=== PATIENT | male | born 1990 | race Caucasian/White ===

== ENCOUNTER 2024-08-26 11:22 | Oncology outpatient (recurring) (ONCR) | payer OTHER, SELFPAY ==
[2024-08-17 14:12] LABS: Basophils % 0.4 %; Eosinophils # 0.1 10^3/uL (0.0-0.8); Eosinophils % 1.6 %; Hematocrit 41.4 % (37-53); Lymphocytes # 3.1 10^3/uL (0.8-4.8); Lymphocytes % 38.4 %; Mean Corpuscular HGB Conc 34.8 g/dL (30-55); Mean Corpuscular Hemoglobin 33.3 pg (27-33); Mean Corpuscular Volume 95.6 fl (82-101); Mean Platelet Volume 9.5 fL (7.4-10.4); Monocytes # 0.5 10^3/uL (0.2-0.9); Monocytes % 5.8 %; Neutrophils # 4.35 10^3/uL (1.8-7.7); Neutrophils % 53.7 %; Nucleated Red Blood Cells % 0 %; Platelet Count 176 10^3/cmm (157-399); Red Blood Count 4.33 10^6/uL (3.85-5.65); Red Cell Distribution Width 13.9 % (12.1-15.1)
[2024-08-17 14:32] LABS: Alanine Aminotransferase 57 U/L (0-41); Albumin Level 4.2 g/dL (3.5-5.2); Alkaline Phosphatase 85 U/L (40-130); Anion Gap 14.7 (5-19); Aspartate Amino Transferase 39 U/L (0-40); Blood Urea Nitrogen 15 mg/dL (6-20); Calcium 9.2 mg/dL (8.5-10.5); Carbon Dioxide 27 mmol/L (22-29); Chloride 100 mmol/L (98-107); Glomerular Filtration Rate 84.5 mL/min (90-130); Glucose 116 mg/dL (65-115); Magnesium 2.3 mg/dL (1.7-2.3); Osmolality Calculated 288 mOsm/kg (285-295); Phosphorus 4.1 mg/dL (2.5-4.5); Potassium 3.7 mmol/L (3.5-5.1); Sodium 138 mmol/L (136-145); Total Bilirubin 0.4 mg/dL (0.15-1.2); Total Protein 7.2 g/dL (6.6-8.7); Uric Acid 4.9 mg/dL (3.4-7.0)
[2024-08-17 14:39] LABS: Lactate Dehydrogenase 192 U/L (135-225)
[2024-08-22 14:09] LABS: BCR ABL1 (IS) 7.147 (0.000); P210 BCR ALB1 DETECTED; P210 BCR ALB1 Yes Test Yes; Prior Results NG; Source blood
== END 2024-09-14 23:59 | disposition home or self-care (01) ==
PROVIDERS: Visit Provider Internal Medicine
DX: Z53.9 Procedure and treatment not carried out, unspecified reason (principal)
CPT/HCPCS: 36415; 80053; 81206; 83615; 83735; 84100; 84550; 85025

== ENCOUNTER 2024-10-28 11:18 | Oncology outpatient (recurring) (ONCR) | payer OTHER, SELFPAY ==
[2024-10-19 09:36] LABS: Basophils % 0.4 %; Eosinophils # 0.1 10^3/uL (0.0-0.8); Eosinophils % 1.4 %; Hematocrit 42.3 % (37-53); Lymphocytes # 3.7 10^3/uL (0.8-4.8); Lymphocytes % 40.9 %; Mean Corpuscular HGB Conc 34.3 g/dL (30-55); Mean Corpuscular Hemoglobin 32.8 pg (27-33); Mean Corpuscular Volume 95.7 fl (82-101); Monocytes # 0.6 10^3/uL (0.2-0.9); Monocytes % 6.2 %; Neutrophils # 4.58 10^3/uL (1.8-7.7); Neutrophils % 50.8 %; Nucleated Red Blood Cells % 0 %; Platelet Count 128 10^3/cmm (157-399); Red Blood Count 4.42 10^6/uL (3.85-5.65); Red Cell Distribution Width 13.6 % (12.1-15.1); White Blood Count 9.04 10^3/uL (3.29-11.43)
[2024-10-19 09:52] LABS: Alanine Aminotransferase 54 U/L (0-41); Albumin Level 4.1 g/dL (3.5-5.2); Alkaline Phosphatase 63 U/L (40-130); Aspartate Amino Transferase 37 U/L (0-40); Blood Urea Nitrogen 12 mg/dL (6-20); Carbon Dioxide 25 mmol/L (22-29); Chloride 100 mmol/L (98-107); Globulin 2.6 g/dL (1.3-4.6); Glomerular Filtration Rate 84.5 mL/min (90-130); Glucose 116 mg/dL (65-115); Magnesium 2.1 mg/dL (1.7-2.3); Osmolality Calculated 289 mOsm/kg (285-295); Sodium 139 mmol/L (136-145); Total Bilirubin 0.3 mg/dL (0.15-1.2); Total Protein 6.7 g/dL (6.6-8.7)
[2024-10-19 09:58] LABS: Anion Gap 17.8 (5-19); Potassium 3.8 mmol/L (3.5-5.1)
[2024-10-26 13:19] LABS: BCR ABL1 (IS) 3.491 (0.000); P210 BCR ALB1 DETECTED; P210 BCR ALB1 Yes Test Yes; Prior Results P190 P210; Source whole blood
[2024-10-27 10:26] LABS: Leukemia Profile (BBPL) See Report
== END 2024-11-14 23:59 | disposition home or self-care (01) ==
PROVIDERS: Internal Medicine; Visit Provider Internal Medicine Medical Oncology
DX: Z53.9 Procedure and treatment not carried out, unspecified reason (principal)
CPT/HCPCS: 36415; 80053; 81206; 83735; 84100; 85025; 88184; 88185

== ENCOUNTER 2024-12-30 11:54 | Oncology outpatient (recurring) (ONCR) | payer OTHER, SELFPAY ==
[2024-12-21 14:10] LABS: Hematocrit 41.1 % (37-53); Hemoglobin 14.30 g/dL (11.27-16.99); Mean Corpuscular HGB Conc 34.8 g/dL (30-55); Mean Corpuscular Hemoglobin 33.3 pg (27-33); Mean Corpuscular Volume 95.8 fl (82-101); Nucleated Red Blood Cells % 0 %; Platelet Count 173 10^3/cmm (157-399); Red Blood Count 4.29 10^6/uL (3.85-5.65); White Blood Count 5.80 10^3/uL (3.29-11.43)
[2024-12-21 14:26] LABS: Alanine Aminotransferase 35 U/L (0-41); Albumin Level 4.2 g/dL (3.5-5.2); Alkaline Phosphatase 58 U/L (40-130); Aspartate Amino Transferase 23 U/L (0-40); Blood Urea Nitrogen 11 mg/dL (6-20); Calcium 9.0 mg/dL (8.5-10.5); Carbon Dioxide 25 mmol/L (22-29); Chloride 103 mmol/L (98-107); Globulin 2.7 g/dL (1.3-4.6); Glucose 106 mg/dL (65-115); Osmolality Calculated 288 mOsm/kg (285-295); Sodium 139 mmol/L (136-145); Total Protein 6.9 g/dL (6.6-8.7)
[2024-12-21 14:36] LABS: Anion Gap 14.8 (5-19); Potassium 3.8 mmol/L (3.5-5.1)
[2024-12-24 23:04] LABS: BCR ABL1 (IS) 2.670 (0.000); P210 BCR ALB1 DETECTED; P210 BCR ALB1 Yes Test Yes; Source whole blood
== END 2025-01-14 23:59 | disposition home or self-care (01) ==
PROVIDERS: Visit Provider Internal Medicine Medical Oncology
DX: C92.10 Chronic myeloid leukemia, BCR/ABL-positive, not having achieved remission (principal)
CPT/HCPCS: 36415; 80053; 81206; 85025

== ENCOUNTER 2025-03-04 14:15 | Oncology outpatient (recurring) (ONCR) | payer OTHER, SELFPAY ==
[2025-02-23 10:17] LABS: Hematocrit 40.7 % (37-53); Hemoglobin 13.80 g/dL (11.27-16.99); Mean Corpuscular HGB Conc 33.9 g/dL (30-55); Mean Corpuscular Hemoglobin 32.5 pg (27-33); Mean Corpuscular Volume 95.8 fl (82-101); Nucleated Red Blood Cells % 0 %; Platelet Count 171 10^3/cmm (157-399); Red Blood Count 4.25 10^6/uL (3.85-5.65); White Blood Count 9.78 10^3/uL (3.29-11.43)
[2025-02-23 10:32] LABS: Alanine Aminotransferase 52 U/L (0-41); Albumin Level 4.3 g/dL (3.5-5.2); Alkaline Phosphatase 68 U/L (40-130); Anion Gap 12.1 (5-19); Aspartate Amino Transferase 33 U/L (0-40); Blood Urea Nitrogen 13 mg/dL (6-20); Calcium 8.9 mg/dL (8.5-10.5); Carbon Dioxide 25 mmol/L (22-29); Chloride 106 mmol/L (98-107); Globulin 2.7 g/dL (1.3-4.6); Glucose 105 mg/dL (65-115); Magnesium 2.1 mg/dL (1.7-2.3); Osmolality Calculated 288 mOsm/kg (285-295); Potassium 4.1 mmol/L (3.5-5.1); Sodium 139 mmol/L (136-145); Total Protein 7.0 g/dL (6.6-8.7); Uric Acid 5.7 mg/dL (3.4-7.0)
[2025-02-26 21:34] LABS: BCR ABL1 (IS) 1.392 (0.000); P210 BCR ALB1 DETECTED; P210 BCR ALB1 Yes Test Yes; Source blood
== END 2025-03-16 23:59 | disposition home or self-care (01) ==
PROVIDERS: Visit Provider Internal Medicine Medical Oncology
DX: Z53.9 Procedure and treatment not carried out, unspecified reason (principal)
CPT/HCPCS: 36415; 80053; 81206; 83615; 83735; 84100; 84550; 85025

== ENCOUNTER → 2025-04-09 08:25 | Outpatient (BNVA) | payer OTHER, SELFPAY | DX: Z00.00 Encounter for general adult medical examination without abnormal findings (principal) | CPT/HCPCS: 80061 ==

== ENCOUNTER 2025-05-06 13:03 | Oncology outpatient (recurring) (ONCR) | payer OTHER, SELFPAY ==
[2025-04-26 08:20] LABS: Hematocrit 41.9 % (37-53); Hemoglobin 14.40 g/dL (11.27-16.99); Mean Corpuscular HGB Conc 34.4 g/dL (30-55); Mean Corpuscular Hemoglobin 32.6 pg (27-33); Mean Corpuscular Volume 94.8 fl (82-101); Nucleated Red Blood Cells % 0 %; Platelet Count 201 10^3/cmm (157-399); Red Blood Count 4.42 10^6/uL (3.85-5.65); White Blood Count 7.04 10^3/uL (3.29-11.43)
[2025-04-26 08:39] LABS: Albumin Level 4.2 g/dL (3.5-5.2); Alkaline Phosphatase 55 U/L (40-130); Blood Urea Nitrogen 13 mg/dL (6-20); Calcium 8.9 mg/dL (8.5-10.5); Carbon Dioxide 21 mmol/L (22-29); Chloride 105 mmol/L (98-107); Globulin 2.5 g/dL (1.3-4.6); Glucose 124 mg/dL (65-115); Osmolality Calculated 292 mOsm/kg (285-295); Sodium 140 mmol/L (136-145); Total Protein 6.7 g/dL (6.6-8.7)
[2025-04-26 08:44] LABS: Alanine Aminotransferase 52 U/L (0-41); Anion Gap 18.3 (5-19); Aspartate Amino Transferase 37 U/L (0-40); Potassium 4.3 mmol/L (3.5-5.1)
[2025-04-29 15:09] LABS: BCR ABL1 (IS) 1.259 (0.000); P210 BCR ALB1 DETECTED; P210 BCR ALB1 Yes Test Yes; Source blood
== END 2025-05-16 23:59 | disposition home or self-care (01) ==
PROVIDERS: Internal Medicine; Visit Provider Internal Medicine Medical Oncology
DX: C92.10 Chronic myeloid leukemia, BCR/ABL-positive, not having achieved remission (principal); R03.0 Elevated blood-pressure reading, without diagnosis of hypertension
CPT/HCPCS: 36415; 80053; 81206; 85025